=== PATIENT | female | born 1950 | race African-American/Black ===

== ENCOUNTER 2018-07-22 17:26 | Emergency (ER) | payer MEDICARE, OTHER ==
[2018-07-22 17:41] VITALS: BP 182/90
--- NOTE | 2018-07-22 18:13 | ER Document Report ---
Addendum entered and electronically signed by RADHA PIPER NP 08/12/18 20:42: Discharge - Discharge Clinical Impression: Finger laceration Qualifiers: Encounter type: initial encounter Finger: index finger Damage to nail status: with damage Foreign body presence: without foreign body Laterality: left Qualified Code(s): S61.311A - Laceration without foreign body of left index finger with damage to nail, initial encounter Condition: Stable Disposition: HOME, SELF-CARE Instructions: Antibiotic Ointment Protection ([facility]), Soap Cleansing ([facility]) Additional Instructions: *You have been treated for finger laceration Take Tylenol Motrin for the pain *Monitor the site for signs of infection such as increasing pain, redness, swelling, warmth *Your finger clean *Follow up with a primary care provider in 1 week for recheck *Return to ED for signs of infection, worsening condition, changes, needs Referrals: HIRA ANDREA MD [ACTIVE STAFF] - Follow up as needed Original Note: HPI - HPI Patient complains to provider of: finger laceration Time Seen by Provider: 07/22/18 17:57 Onset: Yesterday Onset/Duration: Sudden Quality of pain: Achy Pain Level: 4 Context: Patient presents emergency department with complaints of finger laceration her left index fingertip. Patient reports she was cutting cabbage when she cut her finger. She applied a bandage wrapped it up. She reports her neighbor and her tried to take the bandage off today and did not have any luck so she came to the emergency department. Patient is not a diabetic and denies other symptoms such as fever vomiting diarrhea. Associated Symptoms: None Exacerbated by: Denies Relieved by: Denies Similar symptoms previously: No Recently seen / treated by doctor: No Past Medical History - General Information source: Patient - Social History Smoking Status: Unknown if Ever Smoked Cigarette use (# per day): No Frequency of alcohol use: None Drug Abuse: None Lives with: Family Family History: None Patient has suicidal ideation: No Patient has homicidal ideation: No - Medical History Medical History: Negative Surgical Hx: Negative Vertical Provider Document - CONSTITUTIONAL Agree With Documented VS: Yes Exam Limitations: No Limitations General Appearance: WD/WN, No Apparent Distress - INFECTION CONTROL TRAVEL OUTSIDE OF THE [place] IN LAST 30 DAYS: No - HEENT HEENT: Atraumatic, Normocephalic - NECK Neck: Supple - RESPIRATORY Respiratory: No Respiratory Distress - CARDIOVASCULAR Cardiovascular: Regular Rate - MUSCULOSKELETAL/EXTREMETIES Musculoskeletal/Extremeties: MAEW, FROM, Tender - Left index finger tip laceration noted to medial side ~5mm superficial, palmar side with part finge rnail injury. Good cap refill, no erythema,no swelling, no s/s infection - NEURO Level of Consciousness: Awake, Alert, Appropriate Motor/Sensory: No Motor Deficit - DERM Integumentary: Warm, Dry, Laceration Course - Re-evaluation Re-evalutation: 07/22/18 18:16 Water applied to the patient's bandage, bandage removed. Finger cleaned with Shur-Clens topical antibiotic applied with dressing. Patient was instructed on signs and symptoms of infection. She she verbalized understanding of all instructions. Dictation of this chart was performed using voice recognition software; therefore, there may be some unintended grammatical errors. - Vital Signs Vital signs: Temp Pulse Resp BP Pulse Ox 98.5 F 89 16 182/90 H 97 07/22/18 17:40 07/22/18 17:40 07/22/18 17:40 07/22/18 17:40 07/22/18 17:40 Procedures - Laceration/Wound Repair Left 2nd digit Wound length (cm): 0.5 Wound's Depth, Shape: Superficial Laceration pre-procedure: Shur-Clens applied Wound Repaired With: Other - dressing Hands front picture: 1 - left fingertip and nail with laceration, no active bleeding Discharge - Discharge Clinical Impression: Finger laceration Qualifiers: Encounter type: initial encounter Finger: index finger Damage to nail status: without damage Foreign body presence: without foreign body Laterality: left Qualified Code(s): S61.211A - Laceration without foreign body of left index finger without damage to nail, initial encounter Condition: Stable Disposition: HOME, SELF-CARE Instructions: Antibiotic Ointment Protection ([facility]), Soap Cleansing ([facility]) Additional Instructions: *You have been treated for finger laceration Take Tylenol Motrin for the pain *Monitor the site for signs of infection such as increasing pain, redness, swelling, warmth *Your finger clean *Follow up with a primary care provider in 1 week for recheck *Return to ED for signs of infection, worsening condition, changes, needs Referrals: HIRA ANDREA MD [Primary Care Provider] - Follow up as needed
== END 2018-07-22 18:23 | disposition home or self-care (01) ==
LOC: ER 17:26
DX: S61.311A Laceration without foreign body of left index finger with damage to nail, initial encounter (principal); W45.8XXA Other foreign body or object entering through skin, initial encounter
CPT/HCPCS: 99282

== ENCOUNTER → 2019-12-20 | Outpatient (CLI) | payer MEDICARE ==
--- NOTE | 2019-12-20 08:44 | RADIOLOGY REPORT (SQ) ---
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 TECHNIQUE: CT scan of the chest performed using helical scanning technique with dynamic intravenous contrast injection. Images reviewed with lung, soft tissue and bone windows. Reconstructed coronal a nd sagittal MPR images reviewed. All images stored on PACS. All CT scanners at this facility use dose modulation, iterative reconstruction, and/or weight based d osing when appropriate to reduce radiation dose to as low as reasonably achievable (ALARA). [facility]: Dose Right [facility]: CareDose [facility]: Dose Right [facility]: Teradose 4D [facility]: [email or web address] RADIATION DOSE: CT Rad equipment meets quality standard of care and radiation dose reduction techniq ues were employed. CTDIvol: 22.2 - 22.9 mGy. DLP: 3214 mGy-cm. . LIMITATIONS: None. FINDINGS: AXILLAE: Extensive left axillary adenopathy. Numerous enlarged nodes with the largest inc ompletely imaged. This measures over 5 cm in cranial caudal dimensions. 2 smaller individual nodes are measured at 1.8 and 2.4 cm. CHEST WALL: Asymmetric fatty infiltration of the left breast with skin thickening. LUNGS: 2.8 mm subpleural nodule in the superior segment of left lower lobe. This is best demonstrate d on series 6, image 52. 2nd small linear subpleural nodule on series 6, image 57 is most consistent with scar. Small approximately 1.5 mm nodule in the right upper lobe best demonstrated on series 6, image 47 1.6 mm subpleural nodule on series 6, image 61 in the periphery of the right upper lobe. L inear subpleural nodule on series 6, image 80 most likely scar. PLEURA: No effusions. No calcifications. THYROID: No masses or significant asymmetry. HILAR AND MEDIASTINAL STRUCTURES: No identified masses or abnormal nodes. AORTA AND GREAT VESSELS: No aneurysm. No dissection. PULMONARY ARTERIES: No identified pulmonary emboli. Study not optimized for the pulmonary arteries. HEART: No pericardial effusion. HARDWARE AND LIFELINES: None. BONES: No significant finding. OTHER: No other significant finding. IMPRESSION: Fairly extensive left axillary adenopathy as described. The largest mass and/or kink Gu am ratio nodes is incompletely image due to field of view. Inflammatory changes in the left breast t issue with skin thickening on the left. COMPARISON: None. RADIATION DOSE: CT Rad equipment meets quality standard of care and radiation dose reduction techniq ues were employed. CTDIvol: 22.2 - 22.9 mGy. DLP: 3214 mGy-cm. mGy. TECHNIQUE: CT scan of the abdomen and pelvis performed with intravenous and oral contrast using dustin jerald scanning technique with dynamic intravenous contrast injection. Images reviewed with lung, soft tissue and bone windows. Reconstructed coronal and sagittal MPR images reviewed. Delayed images for evaluation of the urinary system also acquired and evaluated. All images stored on PACS. All CT scanners at this facility use dose modulation, iterative reconstruction, and/or weight based d osing when appropriate to reduce radiation dose to as low as reasonably achievable (ALARA). [facility]: Dose Right [facility]: SureCare [facility]: Dose Right [facility]: Teradose 4D [facility]: [employer] FINDINGS: LIVER: Numerous cysts. No suspicious lesions. SPLEEN: Normal size. No focal lesions. PANCREAS: No masses. No significant calcifications. No adjacent inflammation or peripancreatic flui d collections. Pancreatic duct not dilated. GALLBLADDER: No identified stones by CT criteria. No inflammatory changes to suggest cholecystitis. ADRENAL GLANDS: No significant masses or asymmetry. RIGHT KIDNEY AND URETER: No solid masses. No significant calcifications. No hydronephrosis or hyd roureter. LEFT KIDNEY AND URETER: No solid masses. No significant calcifications. No hydronephrosis or hydr oureter. AORTA AND VESSELS: No aneurysm. No dissection. Renal arteries, SMA, celiac without stenosis. RETROPERITONEUM: No retroperitoneal adenopathy, hemorrhage or masses. LARGE AND SMALL BOWEL: No acute findings. Postsurgical changes with anastomosis noted in the subhepa tic region. Probable ascending colon resection. Clinical correlation is needed. Questionnaire stat es no prior abdominal surgery. APPENDIX: Not visualized. ABDOMINAL WALL: No hernia or masses. PERITONEAL CAVITY: No free air. No free fluid. No peritoneal implants or masses. PELVIS: Fibroid uterus. The uterus measures 9.3 x 12.3 x 10.3 cm. BONES: Scattered small lucencies within several vertebral bodies. Recommend correlation with bone sc an. These are nonspecific. OTHER: No other significant finding. IMPRESSION: Fibroid uterus. Presumed prior partial colectomy. No evidence of metastatic disease in the abdomen or pelvis. Multiple hepatic cysts. TECHNICAL DOCUMENTATION: JOB ID: [id number] Quality ID # [id number]: Final reports with documentation of one or more dose reduction techniques (e.g., Au tomated exposure control, adjustment of the mA and/or kV according to patient size, use of iterative reconstruction technique) 2010 [employer]- All Rights Reserved Reading location - IP/workstation name: [email or web address]
--- NOTE | 2019-12-20 12:41 | RADIOLOGY REPORT (SQ) ---
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 RADIONUCLIDE AND DOSE: 21.5 millicuries Tc99m MDP. The route of agent administration: Intravenous. ADDITIONAL DRUGS AND DOSES: None. TECHNIQUE: Routine delayed images at 3 hour post radionuclide injection acquired of the bony skeleto n including anterior and posterior whole-body projections and additional focused images as needed. LIMITATIONS: None. FINDINGS: BONES: There is increased uptake involving the right posterior 5th rib. Review of the CT demonstrates what appears to be posttraumatic change or degenerative change. No lytic or sclerotic p rocess ease to suggest metastatic disease. No other areas of abnormal uptake. KIDNEYS: Symmetric excretion without obstruction. OTHER: No other significant finding. IMPRESSION: Increased uptake in the right rib which appears to be posttraumatic or degenerative. No evidence of metastatic disease. COMMENT: Quality measure 147: Current bone scan is compared with any available plain radiographs, p rior bone scans, and CT/MRI. TECHNICAL DOCUMENTATION: JOB ID: [id number] 2010 [employer]- All Rights Reserved Reading location - IP/workstation name: [email or web address]
--- OUTSIDE RECORDS SUMMARY | 2019-12-23 08:55 | XMS REPORT ---
:1950 Author Organization [facility] Address [facility] [address] [place] [id number] Care Team Providers Name Role Phone Manjula Mark M.D. Attending Clinician Unavailable Allergies, Adverse Reactions, Alerts This patient has no known allergies or adverse reactions. Medications Ordered Filled Start Stop Current Ordering Indication Dosage Frequency Signature Comments Components Medication Medication Date Date Medication? Clinician (SIG) Name Name Arimidex 2019-02 Yes 1 02-10 00:00: 00 Atorvastati Yes 1 n Calcium Ergocalcife Yes 1 rol hydroCHLORO Yes 1 thiazide Lisinopril Yes 1 Problems Condition Condition Condition Status Onset Resolution Last Treatin g Comments Name Details Category Date Date Treatment Clinician Date Malignant Malignant Diagnosis active 2019-02 neoplasm of neoplasm of 02-10 upper-outer upper-outer 00:00: quadrant of quadrant of 00 female female breast breast Procedures Procedure Date / Time Performed Performing Clinician Eula alcocer colonoscopy 2017-02-06 00:00:00 colon resection for cancerous 2014-02-06 00:00:00 polyps breast biopsy Results This patient has no known results. Encounters Start End Encounter Admission Attending Care Care Encounter Date/Time Date/Time Type Type Clinicians Facility Department ID 2019-12-19 2019-12-19 Outpatient [facility] n [id number] 00:00:00 00:00:00 [facility] 2019-12-16 2019-12-16 Outpatient [facility] n [id number] 00:00:00 00:00:00 [facility] 2019-12-13 2019-12-13 Outpatient [facility] n [id number] 00:00:00 00:00:00 [facility] 2019-12-12 2019-12-12 Jas Delaney [facility] 2 [id number] 00:00:00 00:00:00 Noreen Fair [facility] 2019-12-11 2019-12-11 [facility] n [id number] 00:00:00 00:00:00 n [facility] 2019-12-03 2019-12-03 Outpatient Jane Aranda n [id number] 00:00:00 00:00:00 n [facility] 2019-11-27 2019-11-27 Outpatient Jane Aranda n [id number] 00:00:00 00:00:00 n [facility] 2019-11-26 2019-11-26 Outpatient Manoj Manoj n [id number] 00:00:00 00:00:00 n [facility] 2014-12-11 2014-12-11 Outpatient Manoj Manoj n [id number] 00:00:00 00:00:00 [facility] 2014-02-21 2014-02-21 Outpatient Jane Lara n [id number] 00:00:00 00:00:00 [facility] Oncology Oncology [facility] Social History Smoking Status Start Date Stop Date Never 2019-12-12 13:51:21 Social History Observation Description Sex Female Vital Signs Vital Name Observation Time Observation Value Comments BMI 2019-12-12 13:50:40 39.5100 BP reyes 2019-12-12 13:50:40 115.0000 mm[Hg] Bdy height 2019-12-12 13:50:40 64.0000 [in_i] Heart rate 2019-12-12 13:50:40 92.0000 /min Resp rate 2019-12-12 13:50:40 20.0000 /min BP sys 2019-12-12 13:50:40 164.0000 mm[Hg] Body temperature 2019-12-12 13:50:40 97.9000 [degF] Weight 2019-12-12 13:50:40 230.2000 [lb_av]
== END ==
LOC: RAD 07:53
PROVIDERS: ATTEND Internal Medicine Hematology & Oncology
DX: C50.412 Malignant neoplasm of upper-outer quadrant of left female breast (principal); R59.9 Enlarged lymph nodes, unspecified; K76.89 Other specified diseases of liver; D25.9 Leiomyoma of uterus, unspecified
CPT/HCPCS: 82565; 78306; 71260; 74177; A9503; Q9969